=== PATIENT | female | born 1970 | race Caucasian/White ===

== ENCOUNTER 2019-03-25 12:13 | Emergency (ER) | payer OTHER ==
[~2019-03-25] VITALS: Ht 162.6 cm; Wt 75.0 kg
[~2019-03-25 12:13] MED LIST: CYCL10TA7 PO; HYDR-3498 PO; IBUP-1542 PO; SULF1TAB23 PO; [UNRECOGNIZED DRUG - CODE] PO; [UNRECOGNIZED DRUG - OTHER] PO
[2019-03-25 12:18] VITALS: BP 121/65; PULSE 82; RESP 18; Ht 162.6 cm; Wt 75.0 kg
[2019-03-25] MEDS ORDERED: KETOROLAC 30 MG INJ IM STA (14:26)
== END 2019-03-25 15:35 | disposition home or self-care (01) ==
LOC: FTE 12:13
DX: M54.42 Lumbago with sciatica, left side (principal); M62.830 Muscle spasm of back
CPT/HCPCS: 72100; 81003; 81025; 96372; J1885; Z7502